=== PATIENT | female | born 1980 | race Caucasian/White ===

== ENCOUNTER 2021-12-27 17:05 | Emergency (ER) | payer SELFPAY ==
[~2021-12-27] VITALS: Ht 157.5 cm; Wt 83.5 kg
--- NOTE | 2021-12-27 17:22 | NUR ---
BIBFAM C/O HEAD PAIN, R EAR BUZZING SOUND, NECK AND LOWER BACK PAIN S/P SLIPPED AND FELL. 01/29 PS. TO ER BED 7, HOOKED TO MONITOR, CHANGED TO HOSP GOWN, WARM BLANKET PROVIDED,. PATIENT AAO x4. BREATHING EVEN AND UNLABORED. AWAITING MD MCMILLAN
--- NOTE | 2021-12-27 17:50 | NUR ---
DR ROMO AT BEDSIDE
[2021-12-27] MEDS ORDERED: HYDROCODONE/APAP 5/325MG TABLET PO ONE (18:00)
[2021-12-27] MEDS ORDERED: HYDROCODONE/APAP 5/325MG TABLET ONE (18:08)
--- NOTE | 2021-12-27 18:22 | NUR ---
Nedra tadeo in [facility] - 12/27/21 at 1836 by ARYAN CALLED ELIE (FRIEND FOR TRANSPORT) LEFT VOICEMAIL
--- NOTE | 2021-12-27 18:25 | NUR ---
Nedra tadeo in [facility] - 12/27/21 at 1836 by ARYAN ELIE
--- NOTE | 2021-12-27 19:45 | NUR ---
RECEIVED PATIENT IN BED, AWAKE, ALERT AND VERBALLY RESPONSIVE. PATIENT STATES SHE IS HEARING BUZZING IN HER EARS. STATES SHE RECEIVED PAIN MEDICATION EARLIER. NO S/S OF DISTRESS. PATIENT CONNECTED TO BEDSIDE MONITOR.
[2021-12-27] MEDS ORDERED: CARI350T PO (19:55)
[2021-12-27] MEDS ORDERED: HYDR-4209 PO (19:55)
--- NOTE | 2021-12-27 20:30 | NUR ---
Patient discharged to home in stable condition. Written and verbal after care instructions given. Patient verbalizes understanding of instruction.
[2021-12-27 20:31] VITALS: BP 130/88
== END 2021-12-27 20:33 | disposition home or self-care (01) ==
LOC: ER 17:30
DX: S13.4XXA Sprain of ligaments of cervical spine, initial encounter (principal); S09.90XA Unspecified injury of head, initial encounter; Z79.899 Other long term (current) drug therapy; W01.0XXA Fall on same level from slipping, tripping and stumbling without subsequent striking against object, initial encounter; Y93.89 Activity, other specified; Y92.89 Other specified places as the place of occurrence of the external cause; Y99.8 Other external cause status
CPT/HCPCS: 70450-TC; 72110-TC; 72125-TC